=== PATIENT | female | born 1975 | race Caucasian/White ===

== ENCOUNTER 2018-01-23 10:03 | Outpatient (CLI) | payer MEDICAID ==
[2018-01-23] MEDS ORDERED: BUTORPHANOL 1 MG INJ IV (13:00)
[2018-01-23] MEDS ORDERED: OXYTOCIN 30 UNITS/LR 500 ML IV ×3 (13:00)
[2018-01-23] MEDS ORDERED: LIDOCAINE 1% (MPF) 30 ML INJ INJ (13:00)
[2018-01-23] MEDS ORDERED: CARBOPROST 250 MCG INJ IM (13:00)
[2018-01-23] MEDS ORDERED: MISOPROSTOL 200 MCG TAB PR (13:00)
[2018-01-23] MEDS ORDERED: METHYLERGONOVINE 0.2 MG INJ IM (13:00)
[2018-01-23] MEDS ORDERED: BUTORPHANOL 2 MG INJ IV (13:00)
[2018-01-23] MEDS ORDERED: DEXTROSE 5%-LR 1,000 ML IV (14:32)
[2018-01-23 15:58] LABS: ADD MAN DIFF? NO
[2018-01-23 16:03] LABS: BASOPHILS % 0.3 % (0.0-2.0); EOSINOPHILS # 0.1 10^3/ul (0.0-0.5); EOSINOPHILS % 0.9 % (0.0-7.0); HEMATOCRIT 35.4 % (37.0-47.0); HEMOGLOBIN 12.4 g/dl (12.0-16.0); LYMPHOCYTES # 1.3 10^3/ul (0.8-2.9); LYMPHOCYTES % 19.1 % (15.0-51.0); MEAN CORPUSCULAR HEMOGLOBIN 33.3 pg (29.0-33.0); MEAN CORPUSCULAR VOLUME 95.2 fl (82.0-101.0); MEAN PLATELET VOLUME 9.8 fl (7.4-10.4); MONOCYTE # 0.3 10^3/ul (0.3-0.9); MONOCYTES % 4.7 % (0.0-11.0); NEUTROPHILS % 74.5 % (39.0-77.0); PLATELET COUNT 177 10^3/UL (140-415); RED BLOOD COUNT 3.72 10^6/ul (4.20-5.40); RED CELL DISTRIBUTION WIDTH 14.2 % (11.5-14.5)
[2018-01-23 16:03] LABS: WHITE BLOOD COUNT 6.7 10^3/ul (4.8-10.8)
[2018-01-23 16:19] LABS: GLUCOSE 80 mg/dl (70-220)
[2018-01-23] MEDS: LACTATED RINGER'S 1,000 ML IV ×2 (16:19→23:25)
[2018-01-23 16:22] LABS: INR 0.91; PROTIME 12.3 Sec (11.9-14.9)
[2018-01-23 16:23] LABS: PARTIAL THROMBOPLASTIN TIME 24.7 Sec (25.0-35.0)
[2018-01-23 17:14] LABS: HEPATITIS B SURFACE ANTIGEN NEGATIVE (NEGATIVE)
[2018-01-23 22:08] LABS: RAPID PLASMA REAGIN NONREACTIVE (NR)
[2018-01-23] MEDS: AL HYDROX/MG HYDROX/SIMETH 30 ML CUP PO (23:34)
== END 2018-01-24 07:30 | disposition home or self-care (01) ==
LOC: OBT 10:03 → L-D 10:04 → OBT 01-24 07:30 → L-D 12:00
DX: O62.9 Abnormality of forces of labor, unspecified (principal); O24.419 Gestational diabetes mellitus in pregnancy, unspecified control; O09.529 Supervision of elderly multigravida, unspecified trimester; Z3A.00 Weeks of gestation of pregnancy not specified
CPT/HCPCS: 76818; 82947; 82962; 85025; 85610; 85730; 86592; 86850; 86900; 86901; 87340

== ENCOUNTER 2018-02-06 06:30 | Inpatient (IN) | payer MEDICAID ==
[2018-02-06] MEDS ORDERED: LIDOCAINE 1% (MPF) 30 ML INJ INJ ×2 (07:00)
[2018-02-06] MEDS ORDERED: CARBOPROST 250 MCG INJ IM (07:00)
[2018-02-06] MEDS: MINERAL OIL LIGHT 10 ML VIAL TOP (07:00)
[2018-02-06] MEDS ORDERED: BUTORPHANOL 2 MG INJ IV (07:00)
[2018-02-06] MEDS ORDERED: MISOPROSTOL 200 MCG TAB PR (07:00)
[2018-02-06] MEDS ORDERED: OXYTOCIN 30 UNITS/LR 500 ML IV (07:00)
[2018-02-06 09:10] LABS: ADD MAN DIFF? NO
[2018-02-06 09:18] LABS: BASOPHILS % 0.3 % (0.0-2.0); EOSINOPHILS # 0.1 10^3/ul (0.0-0.5); EOSINOPHILS % 0.9 % (0.0-7.0); HEMOGLOBIN 12.3 g/dl (12.0-16.0); LYMPHOCYTES # 1.3 10^3/ul (0.8-2.9); LYMPHOCYTES % 19.2 % (15.0-51.0); MEAN CORPUSCULAR HEMOGLOBIN 33.1 pg (29.0-33.0); MEAN CORPUSCULAR HGB CONC 35.1 g/dl (32.0-37.0); MEAN CORPUSCULAR VOLUME 94.1 fl (82.0-101.0); MEAN PLATELET VOLUME 9.6 fl (7.4-10.4); MONOCYTE # 0.4 10^3/ul (0.3-0.9); MONOCYTES % 5.7 % (0.0-11.0); NEUTROPHIL # 4.9 10^3/ul (1.6-7.5); NEUTROPHILS % 73.4 % (39.0-77.0); PLATELET COUNT 178 10^3/UL (140-415); RED BLOOD COUNT 3.72 10^6/ul (4.20-5.40); RED CELL DISTRIBUTION WIDTH 14.1 % (11.5-14.5)
[2018-02-06 09:18] LABS: WHITE BLOOD COUNT 6.6 10^3/ul (4.8-10.8)
[2018-02-06 09:38] LABS: INR 0.85; PROTIME 11.7 Sec (11.9-14.9); PT RATIO 0.9
[2018-02-06 09:39] LABS: PARTIAL THROMBOPLASTIN TIME 25.2 Sec (25.0-35.0)
[2018-02-06] MEDS: LACTATED RINGER'S 1,000 ML IV ×5 (09:52→23:30)
[2018-02-06 11:38] LABS: GLUCOSE 77 mg/dl (70-220)
[2018-02-06] MEDS: DEXTROSE 5%-LR 1,000 ML IV (13:58)
[2018-02-06] MEDS: OXYTOCIN 30 UNITS/LR 500 ML IV (15:47)
[2018-02-06 22:32] LABS: RAPID PLASMA REAGIN NONREACTIVE (NR)
[2018-02-06] MEDS ORDERED: FENTAnyl 2MCG/ML-ROPIV 0.2% 100 ML (22:32)
[2018-02-06] MEDS ORDERED: ONDANSETRON 4 MG INJ IV (23:00)
[2018-02-06] MEDS ORDERED: NALOXONE (0.4 MG/ML) INJ IV (23:00)
[2018-02-06] MEDS ORDERED: FENTAnyl 2MCG/ML-ROPIV 0.2% 100 ML BAG EPI (23:00)
[2018-02-06] MEDS ORDERED: DIPHENHYDRAMINE 50 MG INJ IV (23:00)
[2018-02-07] MEDS: OXYTOCIN 30 UNITS/LR 500 ML IV ×4 (02:08→07:54)
[2018-02-07] MEDS: METHYLERGONOVINE 0.2 MG INJ IM (02:08)
[2018-02-07] MEDS: MINERAL OIL LIGHT 10 ML VIAL TOP (02:11)
[2018-02-07] MEDS ORDERED: METHYLERGONOVINE 0.2 MG INJ IM (02:30)
[2018-02-07] MEDS ORDERED: SENNA/DOCUSATE NA (8.6MG/50MG) TAB PO (02:30)
[2018-02-07] MEDS ORDERED: OXYTOCIN 30 UNITS/LR 500 ML IV (02:30)
[2018-02-07] MEDS ORDERED: OXYCODONE/ASPIRIN (4.88/325) TAB PO ×2 (02:30)
[2018-02-07] MEDS ORDERED: NACL 0.9% 3 ML SYG IV (02:30)
[2018-02-07] MEDS ORDERED: DIPHENHYDRAMINE 25 MG CAP PO (02:30)
[2018-02-07] MEDS ORDERED: ONDANSETRON 4 MG INJ IV (02:30)
[2018-02-07] MEDS ORDERED: MISOPROSTOL 200 MCG TAB PR (02:30)
[2018-02-07] MEDS ORDERED: CARBOPROST 250 MCG INJ IM (02:30)
[2018-02-07] MEDS: LANOLIN 7 GM TUBE TOP (05:43)
[2018-02-07] MEDS: IBUPROFEN 600 MG TAB PO ×3 (05:43→17:35)
[2018-02-07] MEDS: ACCU-CHEK XX ×4 (07:57→20:05)
[2018-02-07] MEDS: SENNA/DOCUSATE NA (8.6MG/50MG) TAB PO ×2 (09:00→21:00)
[2018-02-07] MEDS: MAGNESIUM HYDROXIDE 30ML CUP PO ×2 (09:00→21:00)
[2018-02-08] MEDS: IBUPROFEN 600 MG TAB PO ×5 (00:08→23:37)
[2018-02-08] MEDS: SENNA/DOCUSATE NA (8.6MG/50MG) TAB PO ×2 (09:00→20:25)
[2018-02-08] MEDS: MAGNESIUM HYDROXIDE 30ML CUP PO ×2 (09:00→20:25)
[2018-02-08 09:39] LABS: ADD MAN DIFF? NO
[2018-02-08 09:44] LABS: BASOPHILS % 0.4 % (0.0-2.0); EOSINOPHILS # 0.1 10^3/ul (0.0-0.5); EOSINOPHILS % 1.5 % (0.0-7.0); HEMATOCRIT 32.3 % (37.0-47.0); HEMOGLOBIN 11.3 g/dl (12.0-16.0); LYMPHOCYTES # 1.5 10^3/ul (0.8-2.9); MEAN CORPUSCULAR HEMOGLOBIN 33.4 pg (29.0-33.0); MEAN CORPUSCULAR VOLUME 95.6 fl (82.0-101.0); MEAN PLATELET VOLUME 9.7 fl (7.4-10.4); MONOCYTE # 0.3 10^3/ul (0.3-0.9); MONOCYTES % 3.8 % (0.0-11.0); NEUTROPHIL # 5.9 10^3/ul (1.6-7.5); NEUTROPHILS % 74.7 % (39.0-77.0); PLATELET COUNT 180 10^3/UL (140-415); RED BLOOD COUNT 3.38 10^6/ul (4.20-5.40); RED CELL DISTRIBUTION WIDTH 14.5 % (11.5-14.5)
[2018-02-08 09:44] LABS: WHITE BLOOD COUNT 7.9 10^3/ul (4.8-10.8)
[2018-02-08] MEDS: WITCH HAZEL/GLYCERIN PAD PR (20:05)
[2018-02-08] MEDS: BENZOCAINE 20% 56 ML SPRAY TOP (20:05)
[2018-02-08] MEDS: DIBUCAINE 1% 30 GM OINT PR (20:05)
[2018-02-09] MEDS: IBUPROFEN 600 MG TAB PO ×2 (05:38→12:29)
[2018-02-09] MEDS: SENNA/DOCUSATE NA (8.6MG/50MG) TAB PO (09:00)
[2018-02-09] MEDS: MAGNESIUM HYDROXIDE 30ML CUP PO (09:00)
== END 2018-02-09 15:06 | disposition home or self-care (01) | DRG 775 ==
LOC: PP1 02-07 04:45 → L-D 06:30 → PP1 02-07 15:30
PROVIDERS: Obstetrics & Gynecology
PROC: 10E0XZZ Delivery of Products of Conception, External Approach (ICD-10-PCS; principal; 2018-02-07)
DX: O24.420 Gestational diabetes mellitus in childbirth, diet controlled (principal); Z37.0 Single live birth; Z3A.39 39 weeks gestation of pregnancy
CPT/HCPCS: 62319; 76815; 76818; 82947; 82962; 85025; 85610; 85730; 86592; 86850; 86900; 86901